=== PATIENT | female | born 1980 | race Asian ===

== ENCOUNTER 2016-09-13 18:20 | Emergency (ER) | payer MEDICAID, OTHER ==
[~2016-09-13] VITALS: Ht 162.6 cm; Wt 71.5 kg
[~2016-09-13 18:20] MED LIST: DIVA500T35 PO; OLAN7.5T2 PO; RISP1 PO
[2016-09-13] MEDS ORDERED: ARIP10TA14 PO (18:49)
[2016-09-13] MEDS ORDERED: RISP4 PO ×2 (18:49)
[2016-09-13] MEDS ORDERED: OLAN10TA3 PO (18:49)
[2016-09-13] MEDS ORDERED: CLON.5 PO (18:49)
[2016-09-13 20:42] VITALS: BP 130/81
== END 2016-09-13 22:38 | disposition home or self-care (01) ==
LOC: EMS 18:31
DX: H60.91 Unspecified otitis externa, right ear (principal); H61.21 Impacted cerumen, right ear; Z88.8 Allergy status to other drugs, medicaments and biological substances
CPT/HCPCS: 99282

== ENCOUNTER 2021-01-20 14:29 | Emergency (ER) | payer OTHER ==
[~2021-01-20] VITALS: Ht 160 cm; Wt 85.5 kg
[~2021-01-20 14:29] MED LIST changes: +ARIP10TA38 PO; +CLON-592 PO; -DIVA500T35 PO; +OLAN10TA74 PO; -OLAN7.5T2 PO; -RISP1 PO; +RISP4TAB73 PO
[2021-01-20 16:30] VITALS: BP 142/94
[2021-01-20] MEDS ORDERED: MECLIZINE HCL 25 MG TABLET PO ONE (16:30)
[2021-01-20] MEDS ORDERED: OLAN7.5T22 PO (16:31)
== END 2021-01-20 17:11 | disposition home or self-care (01) ==
LOC: EMS 14:29
DX: R42 Dizziness and giddiness (principal); F41.9 Anxiety disorder, unspecified; F20.9 Schizophrenia, unspecified; F17.210 Nicotine dependence, cigarettes, uncomplicated; Z88.8 Allergy status to other drugs, medicaments and biological substances
CPT/HCPCS: 99282; 99283